=== PATIENT | male | born 1960 | race Caucasian/White ===

== ENCOUNTER 2016-12-29 02:43 | Emergency (ER) | payer MEDICARE, MEDICAID ==
[~2016-12-29] VITALS: Ht 188 cm; Wt 72.0 kg
[~2016-12-29 02:43] MED LIST: LORA-474 PO; ZOFR4TAB3 SL
[2016-12-29 02:51] VITALS: BP 140/70; PULSE 80; RESP 16; TEMP 98; O2SAT 100
--- NOTE | 2016-12-29 02:56 | PD ---
HPI Chief Complaint: Alcohol/Drug Intoxication Time Seen by Provider: 02:55 Travel History International Travel<30 days: No Contact w/Intl Traveler<30days: No History of Present Illness HPI Patient is a 56-year-old male presents emergency department for medical clearance prior to skilled nursing. Patient wasn't arrested, prior to taking patient to skilled nursing officers noticed that he had a abrasion, open wound on the right foot prompting ER visit. Patient states that he does not know how he got it, and denies any complaints, pain. Has been able ambulate independently without difficulty. PFSH Past Medical History Bipolar Disorder: Yes Anxiety: Yes Depression: Yes Diminished Hearing: No Gastrointestinal Disorders: Yes (REPORTS CHRONIC H/O GI PROBLEMS; DOES NOT LIKE TO DISCUSS ) Neurologic: Yes (NERVE DAMAGE - FEET/LEGS) Psychiatric: Yes (HAS BEEN GARCIA ACTED BEFORE) Past Surgical History Appendectomy: Yes Other Surgery: Yes (FACIAL, FOOT, GI) Social History Alcohol Use: No Tobacco Use: Yes Substance Use: No Allergies-Medications (Allergen,Severity, Reaction): Coded Allergies: No Known Allergies (Verified , 10/09/13) Reported Meds & Prescriptions Reported Meds & Active Scripts Active Zofran ODT (Ondansetron HCl) 4 Mg Tab 4 Mg SL Q6H PRN FOR NAUSEA/VOMITING Ativan (Lorazepam) 1 Mg Tab 1 Mg PO Q6H PRN Review of Systems Except as stated in HPI: all other systems reviewed are Neg Physical Exam Narrative GENERAL: Clinically intoxicated middle-aged male in no acute distress SKIN: Focused skin assessment warm/dry. HEAD: Normocephalic. EYES: No scleral icterus. No injection or drainage. ENT: Mucous membranes pink and moist. CARDIOVASCULAR: Regular rate and rhythm. RESPIRATORY: No accessory muscle use. MUSCULOSKELETAL: Normal gait. Abrasion to the toe of the right foot. No pain, normal range of motion good distal sensation and capillary refill NEUROLOGICAL: Awake and alert. Speech is slightly slurred, clinically intoxicated Data Data Last Documented VS Vital Signs Date Time Temp Pulse Resp B/P Pulse Ox O2 Delivery O2 Flow Rate FiO2 12/29/16 02:51 98.0 80 16 140/70 100 MDM Medical Decision Making Medical Screen Exam Complete: Yes Emergency Medical Condition: Yes Medical Record Reviewed: Yes Differential Diagnosis 56-year-old male here for medical clearance prior to going to skilled nursing. Exam is consistent with abrasion to the toe of the right foot. No further treatment needed. Narrative Course Patient medically cleared and discharged in custody. Diagnosis Primary Impression: Abrasion of toe of right foot Qualified Code: S90.414A - Abrasion of toe of right foot, initial encounter Referrals: Primary Care Physician as needed Med/Other Pt SpecificInfo: No Change to Meds Disposition: [address] LAW ENFORCEMNT Condition: Stable Ginger Abdul MD Dec 29, 2016 02:55
== END 2016-12-29 03:00 ==
LOC: NEDAMB 02:43
DX: S90.414A Abrasion, right lesser toe(s), initial encounter (principal); X58.XXXA Exposure to other specified factors, initial encounter
CPT/HCPCS: 99281